=== PATIENT | male | born 1955 | race Caucasian/White ===

== ENCOUNTER 2019-12-24 03:04 | Outpatient (CLI) | payer OTHER, SELFPAY ==
[2019-12-24 20:04] LABS: SARS-CoV-2 RNA PCR Negative
== END 2019-12-24 03:05 | disposition home or self-care (01) ==
LOC: ANHCOVIDDT 03:05
PROVIDERS: PCP Family Medicine; Visit Provider Internal Medicine Gastroenterology
DX: Z01.812 Encounter for preprocedural laboratory examination (principal); Z20.828 Contact with and (suspected) exposure to other viral communicable diseases
CPT/HCPCS: 87635; C9803; U0003

== ENCOUNTER 2019-12-26 00:51 | Day surgery (SDC) | payer OTHER, SELFPAY ==
[2019-12-19 14:44] VITALS: BMI 28.8
[2019-12-26 07:14] VITALS: BP 114/75; PULSE 74; RESP 16; TEMP 36.1; O2SAT 100; BMI 29.0
[2019-12-26] MEDS: LACTATED RINGERS 1,000 ML 150 ML IV CONT (07:18)
[2019-12-26 07:25] LABS: Glucose Point of Care 79 (65-105)
--- NOTE | 2019-12-26 08:01 | P.CONGI_ITS ---
Assessment and Plan Assessment and plan (1) History of colon polyps: Code(s): Z86.010 - Personal history of colonic polyps Status: Acute Assessment and Plan: Patient has a history of colon polyps in the past. Most recent exam was 2013. Plan is for surveillance colonoscopy at this time. High-fiber diet advised. (2) Type 2 diabetes mellitus with hyperglycemia: Code(s): E11.65 - Type 2 diabetes mellitus with hyperglycemia Status: Acute (3) Paroxysmal atrial fibrillation: Code(s): I48.0 - Paroxysmal atrial fibrillation Status: Acute Assessment and Plan: Patient has a history of atrial fibrillation for which she is on Eliquis anticoagulation. This may contribute to anemia. Eliquis will be held briefly for colonoscopy. GI Consult Note Consult date/time: 12/26/19 08:01 HPI: Mauricio Singh is a 64 year old male seen in evaluation at the request of Dr Jerry Harvey. Patient presents for surveillance colonoscopy. Patient has a history of colon polyps in the past. Most recent colonoscopy 2013 was unremarkable. Patient states that his current weight appetite bowel movements are normal he does report straining at bowel movements somewhat. He states he was recently found to be mildly anemic. He denies any obvious blood in his s tools. Past history significant for atrial fibrillation for which she is on Eliquis anticoagulation. Family history is noncontributory. There is no reported history of colon or rectal disease. Review of Systems Review of Systems: All systems reviewed & are unremarkable except as noted in HPI and below PMFSH Social History Social History Smoking status: Never smoker Alcohol intake: never Spiritual care concerns: No Meds Home Medications and Allergies Home Medications Medication Instructions Recorded Confirmed Type dronedarone 400 mg tablet 400 mg PO Q12H 03/14/19 12/19/19 History albuterol sulfate 90 mcg/actuation 2 inhalation INHALATION Q4H PRN 03/15/19 11/21/19 Rx aerosol inhaler #6.7 gm blood sugar diagnostic #50 each 11/06/19 11/21/19 Rx flash glucose sensor #2 units 11/07/19 11/21/19 Rx insulin lispro 100 unit/mL See Rx Instructions SUB-Q .COMPLEX 11/07/19 11/21/19 Rx subcutaneous pen #3 ml metformin 1,000 mg tablet 500 mg PO BID #90 tablet 11/21/19 12/19/19 Rx apixaban [Eliquis] 5 mg PO BID 12/19/19 12/19/19 History testosterone 20.25 mg/1.25 gram 2 pump TOPICAL DAILY #75 gm 12/24/19 Rx (1.62 %) transdermal gel pump Allergies Allergy/AdvReac Type Severity Reaction Status Date / Time hydrocodone Allergy Unknown Nausea Verified 12/26/19 07:12 sumatriptan Allergy Unknown Nausea Verified 12/26/19 07:12 Vital Signs Vital Signs - 24 hr 12/26/19 07:14 Temperature 97.0 F L Pulse Rate 74 Respiratory Rate 16 Blood Pressure 114/75 Pulse Oximetry 100 Exam Narrative: Exam Narrative: Physical exam reveals patient to be alert. Vital signs stable. HEENT exam unremarkable. Lungs are clear to auscultation and percussion. Heart is without murmur or extra sounds. Abdominal exam bowel sounds are present soft nontender with no organomegaly. Digital external rectal exam is normal.
--- NOTE | 2019-12-26 08:04 | WPDANESEPPF ---
Anes - Initial Pre Proc Eval Procedure: Operation Date: 12/26/19 08:00 Proposed Procedures p Screening Colonoscopy - Manuel Kramer MD Date/Time: 12/26/19 08:04 Surgeon: Manuel Kramer MD Pre Op Diagnosis: Neoplasm Screening/ Hx Colon Polyps Patient Data Age: 64 Gender: M Height: 5 ft 10 in Weight: 91.7 kg Last Vital Signs Temp 97.0 F L 12/26/19 07:14 Pulse 74 12/26/19 07:14 Resp 16 12/26/19 07:14 BP 114/75 12/26/19 07:14 Pulse Ox 100 12/26/19 07:14 Allergies Allergy/AdvReac Type Severity Reaction Status Date / Time hydrocodone Allergy Unknown Nausea Verified 12/26/19 07:12 sumatriptan Allergy Unknown Nausea Verified 12/26/19 07:12 Home Medications Medication Instructions Recorded Confirmed Type dronedarone 400 mg tablet 400 mg PO Q12H 03/14/19 12/19/19 History albuterol sulfate 90 mcg/actuation 2 inhalation INHALATION Q4H PRN 03/15/19 11/21/19 Rx aerosol inhaler #6.7 gm blood sugar diagnostic #50 each 11/06/19 11/21/19 Rx flash glucose sensor #2 units 11/07/19 11/21/19 Rx insulin lispro 100 unit/mL See Rx Instructions SUB-Q .COMPLEX 11/07/19 11/21/19 Rx subcutaneous pen #3 ml metformin 1,000 mg tablet 500 mg PO BID #90 tablet 11/21/19 12/19/19 Rx apixaban [Eliquis] 5 mg PO BID 12/19/19 12/19/19 History testosterone 20.25 mg/1.25 gram 2 pump TOPICAL DAILY #75 gm 12/24/19 Rx (1.62 %) transdermal gel pump Laboratory Tests 12/26/19 07:22 POC Capillary Glucose 79 mg/dl mg/dl (65-105) Patient hx anesthesia problems: none Family hx anesthesia problems: none PMFSH Social History Social History Smoking status: Never smoker Alcohol intake: never Spiritual care concerns: No Anes - Eval Final PreProcedure Day of Procedure 12/26/19 08:04 Patient weight: overweight Heart: irregular rhythm Lungs: clear to auscultation Airway: Mallampati scale class II Neurological: alert and oriented Last oral intake: >/= 8 hours ASA classification: III Emergent: no Anesthetic plan: proceed Anesthesia type and monitoring: general GIVS and standard monitoring Informed Consent: The patient's anesthetic plan and its attendant risks and benefits were discussed with the patient/family/POA. Questions were solicited and answers provided to the satisfaction of the patient/family/POA.
[2019-12-26 08:32] VITALS: BP 111/70; PULSE 73; RESP 16; O2SAT 100
[2019-12-26 08:42] VITALS: BP 105/66; PULSE 70; RESP 16; O2SAT 100
[2019-12-26 08:52] VITALS: BP 123/81; PULSE 70; RESP 16; O2SAT 100
== END 2019-12-26 09:03 | disposition home or self-care (01) ==
PROVIDERS: PCP Family Medicine; Visit Provider Internal Medicine Gastroenterology
PROC: 0DJD8ZZ Inspection of Lower Intestinal Tract, Via Natural or Artificial Opening Endoscopic (ICD-10-PCS; CPT 45378; principal; 2019-12-26 08:00)
DX: Z12.11 Encounter for screening for malignant neoplasm of colon (principal); D12.4 Benign neoplasm of descending colon; D12.5 Benign neoplasm of sigmoid colon; K64.8 Other hemorrhoids; E11.65 Type 2 diabetes mellitus with hyperglycemia; I48.0 Paroxysmal atrial fibrillation; Z79.4 Long term (current) use of insulin; Z79.84 Long term (current) use of oral hypoglycemic drugs; Z79.01 Long term (current) use of anticoagulants
CPT/HCPCS: 45385; 87635; 88305; C9803; J2704; J7120; U0003

== ENCOUNTER → 2020-07-02 08:15 | Outpatient (CLI) | payer OTHER, SELFPAY ==
[2020-07-02 10:51] LABS: Influenza Control Positive
[2020-07-03 19:22] LABS: SARS-CoV-2 RNA PCR Negative
== END ==
PROVIDERS: PCP Family Medicine; Visit Provider Physician Assistant Medical
DX: Z20.822 Contact with and (suspected) exposure to COVID-19 (principal); R68.89 Other general symptoms and signs; B34.9 Viral infection, unspecified
CPT/HCPCS: 87804; C9803; U0003; U0005

== ENCOUNTER 2022-06-23 12:09 | Outpatient (CLI) | payer MEDICARE, SELFPAY ==
--- NOTE | ~2022-06-23 | CT_ITS ---
Non-contrast Head CT History: Headache Technique: Axial non-contrast imaging of the brain was performed. Dose reduction technique was used on this scan by utilizing automated exposure control and iterative reconstruction technique. The dose -length product (DLP) was 605.33 mGy-cm. Findings: There is no evidence of intracranial hemorrhage, mass lesion, or acute infarct. Brain par enchyma appears normal. The ventricles and subarachnoid spaces are normal in size. The calvarium ap pears normal. The visualized paranasal sinuses and mastoid air cells are clear. Impression: No significant abnormality seen. Reviewed, dictated and finalized at location . Impression: No significant abnormality seen.
== END 2022-06-23 12:10 | disposition home or self-care (01) ==
LOC: ANHIMG 12:15
PROVIDERS: PCP Family Medicine; Visit Provider Family Medicine
DX: S06.0XAA Concussion with loss of consciousness status unknown, initial encounter (principal); R51.9 Headache, unspecified; W19.XXXA Unspecified fall, initial encounter
CPT/HCPCS: 70450

== ENCOUNTER 2023-05-25 12:17 | Outpatient (CLI) | payer MEDICARE, SELFPAY ==
--- NOTE | ~2023-05-25 | XR_ITS ---
EXAMINATION: XR shoulder RT min 2V INDICATION: Right shoulder pain TECHNIQUE: Four views of the right shoulder are submitted. COMPARISON: None FINDINGS: Normal alignment. No fracture. There is mild osteoarthritis of the glenohumeral and acromio clavicular joints. Soft tissues are unremarkable. IMPRESSION: 1. Osteoarthritis without acute osseous abnormality. Reviewed, dictated and finalized at location L. RNAL GRINDER SET UP OPERATOR
== END 2023-05-25 12:18 ==
DX: M67.911 Unspecified disorder of synovium and tendon, right shoulder (principal); M19.011 Primary osteoarthritis, right shoulder
CPT/HCPCS: 73030

== ENCOUNTER 2025-02-04 10:13 | Outpatient (CLI) | payer MEDICARE, SELFPAY ==
--- NOTE | ~2025-02-04 | XR_ITS ---
EXAMINATION: XR shoulder RT min 2V, 02/04/2025 10:35 INSURANCE ANALYST HISTORY: M12.811 - Other specific arthropathies, not elsewhere cla... COMPARISON: No comparisons available. Findings: No acute fracture or malalignment. No significant degenerative changes. Soft tissues unremarkable. Impression: No acute fracture or malalignment. Reviewed, dictated and finalized at location P. RANCE ANALYST Impression: No acute fracture or malalignment.
--- OUTSIDE RECORDS SUMMARY | 2025-02-04 11:36 | XMS_ITS | Encounter Summary ---
Author Organization [facility] Health Address [address] [place] [address] Care Team Providers Care Clothing Manager Name Role Phone Jerry Harvey MD Primary Care Provider [phone] Encounter Details Date Type Department Care Team (Late st Contact Info) Description 04/28/2023 Telephone [facility] - Family Medicine [address] [place] [address] Earl Carreon MD [address] [facility] [address] [place] [address] Social History Tobacco Use Types Packs/Day Years Used Date Smoking Tobacco: Never Alcohol Use Standard Drinks/Week Comments No 0 (1 standard drink = 0.6 oz pur e alcohol) PHQ-2 Answer Date Recorded PHQ2 TOTAL SCORE 0 09/21/2022 Sex and Gender Information Value Date Recorded Sex Assigned at Male 08/20/2022 7:20 AM CDT Legal Sex Male 12:33 PM CDT Gender Identity Male 08/20/2022 7:20 AM CDT Sexual Orientation Straight 08/20/2022 7: 20 AM CDT documented as of this encounter Miscellaneous Notes * Telephone Encounter - Jeannie Pike - 04/28/2023 9:47 AM CST Patient called in requesting a Med refill. Drug type: rizatriptan (Maxalt) 10 MG tablet Patient does have an appt scheduled 05/03/23 Looks like request was sent over previously, Pharmacy: [facility] #[id number] [address] [facility] [place] [place] [address] Patient call back number: [phone] ND TRANSPORTATION OPERATOR documented in this encounter Plan of Treatment Not on file documented as of this encounter Visit Diagnoses Not on filedocumented in this encounter Care Teams Clothing Manager Relationship Specialty Start Date End Date Jerry Harvey MD [address] [place] [id number] PCP - General 06/30/22 documented as of this encounter
--- OUTSIDE RECORDS SUMMARY | 2025-02-04 11:36 | XMS_ITS | Encounter Summary ---
Author Organization [employer] Address 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 [phone] PCP - General Family Practice 06/18/19 documented as of this encounter
--- OUTSIDE RECORDS SUMMARY | 2025-02-04 11:37 | XMS_ITS | Encounter Summary ---
Author Organization [facility] Address 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 [address] PCP - General Family Practice 06/18/19 documented as of this encounter
--- OUTSIDE RECORDS SUMMARY | 2025-02-04 11:37 | XMS_ITS | Encounter Summary ---
Author Organization [facility] Address 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 [address] PCP - General Family Practice 06/18/19 documented as of this encounter
--- OUTSIDE RECORDS SUMMARY | 2025-02-04 11:37 | XMS_ITS | Encounter Summary ---
Author Organization [employer] Address [address] [place] [address] Care Team Providers Care Home Child Care Provider Name Role Phone Jerry Harvey MD Primary Care Provider [phone] Encounter Details Date Type Department Care Team (Late st Contact Info) Description 06/27/2019 Digital Self COVID-1 9 Monitoring [facility] ABSTRACTION Provider, Abstract NO ADDRESS ON FILE Social History Tobacco Use Types Packs/Day Years Used Date Smoking Tobacco: Never Assessed Sex and Gender Information Value Date Recorded Sex Assigned at Not on file Legal Sex Male 4:56 AM [place] AUDITOR Gender Identity Not on file Sexual Orientation Not on file documented as of this encounter Plan of Treatment Not on file documented as of this encounter Visit Diagnoses Not on filedocumented in this encounter Additional Health Concerns Infection Onset Date Last Indicated Resolved Time COVID-19 06/15/2019 06/15/2019 08/14/2019 1:16 AM CDT documented as of this encounter Care Teams Home Child Care Provider Relationship Specialty Start Date End Date Jerry Harvey MD [address] [place] [address] PCP - General Family Practice 06/18/19 documented as of this encounter
--- OUTSIDE RECORDS SUMMARY | 2025-02-04 11:37 | XMS_ITS | Encounter Summary ---
Author Organization [facility] Address [address] [facility] [address] [facility] [address] Care Team Providers Care Polymerization Supervisor Name Role Phone Jerry Harvey MD Primary Care Provider [phone] Reason for Visit * Reason Onset Date Comments MEDICATION REFILL 08/19/2022 Encounter Details Date Type Department Care Team (Late st Contact Info) Description 08/19/2022 Refill [facility] - Family Medicine [address] [place] [address] Earl Carreon MD [address] [facility] [address] [place] [address] MEDICATION REFILL Social History Tobacco Use Types Packs/Day Years Used Date Smoking Tobacco: Never Alcohol Use Standard Drinks/Week Comments No 0 (1 standard drink = 0.6 oz pur e alcohol) Sex and Gender Information Value Date Recorded Sex Assigned at Male 08/20/2022 7:20 AM CDT Legal Sex Male 12:33 PM CDT Gender Identity Male 08/20/2022 7:20 AM CDT Sexual Orientation Straight 08/20/2022 7: 20 AM CDT documented as of this encounter Miscellaneous Notes * Telephone Encounter - Renetta Kaur - 08/22/2022 2:19 PM CDT Refill Request Mauricio Francisco NICHOLAS: 08/04/22Feb due: 08/25/22Feb scheduled: 08/20/2022 LRF: 08/04/22 Qty Disp: 9 # of refills: 0 Allergies: No Known Allergies Pended Medication Order: Requested Prescriptions Pending Prescriptions Disp Refills ??? rizatriptan (Maxalt) 5 MG tablet 9 tablet 0 Sig: Take 1 tab by mouth once at first sign of migraine. May repeat one time after 2 hours if needed. No more than 6 tablets a week. documented in this encounter Plan of Treatment Not on file documented as of this encounter Visit Diagnoses Diagnosis Concussion without loss of consciousness, subsequent encounter documented in this encounter Care Teams Polymerization Supervisor Relationship Specialty Start Date End Date Jerry Harvey MD [address] [place] [address] PCP - General 06/30/22 documented as of this encounter
--- OUTSIDE RECORDS SUMMARY | 2025-02-04 11:37 | XMS_ITS | Encounter Summary ---
Author Organization [facility] Address 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 [address] PCP - General Family Practice 06/18/19 documented as of this encounter
--- OUTSIDE RECORDS SUMMARY | 2025-02-04 11:37 | XMS_ITS | Encounter Summary ---
Author Organization [facility] Address 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 [address] PCP - General Family Practice 06/18/19 documented as of this encounter
--- OUTSIDE RECORDS SUMMARY | 2025-02-04 11:37 | XMS_ITS | Encounter Summary ---
Author Organization [employer] Address [address] [place] [address] Care Team Providers Care Hardscape Foreman Name Role Phone Jerry Harvey MD Primary Care Provider [phone] Encounter Details Date Type Department Care Team (Late st Contact Info) Description 07/02/2019 Digital Self COVID-1 9 Monitoring [place] ABSTRACTION Provider, Abstract NO ADDRESS ON FILE Social History Tobacco Use Types Packs/Day Years Used Date Smoking Tobacco: Never Assessed Sex and Gender Information Value Date Recorded Sex Assigned at Not on file Legal Sex Male 4:56 AM CREDIT REVIEW OFFICER Gender Identity Not on file Sexual Orientation Not on file documented as of this encounter Plan of Treatment Not on file documented as of this encounter Visit Diagnoses Not on filedocumented in this encounter Additional Health Concerns Infection Onset Date Last Indicated Resolved Time COVID-19 06/15/2019 06/15/2019 08/14/2019 1:16 AM CDT documented as of this encounter Care Teams Hardscape Foreman Relationship Specialty Start Date End Date Jerry Harvey MD [address] [place] [address] PCP - General Family Practice 06/18/19 documented as of this encounter
--- OUTSIDE RECORDS SUMMARY | 2025-02-04 11:37 | XMS_ITS | Clinical Summary ---
Author Organization [facility] Address [facility] [place] [address] Care Team Providers Care Industrial Gas Servicer Supervisor Name Role Phone Jerry Harvey MD Primary Care Provider [phone] Allergies No known active allergies Medications metFORMIN 500 MG tablet Take 500 mg by mouth 2 (two) times daily with meals. Active meloxicam 7.5 MG tabletIndicatio ns:Arthritis of knee Take 1 tablet (7.5 mg total) by mouth 2 (two) times daily as needed for Pain. Do not take with other NSAIDS like ibuprofen 60 tablet 0 Active metFORMIN 250 mg TABS 250 mg, glyBURIDE 1.25 MG TABS 1.25 mg Take by mouth 2 (two) times daily. Active Multiple Vitamin (MULTIVITAMIN ADULT OR) daily. Active testosterone 1% gel testosterone 20.25 mg/1.25 gram (1.62 %) transdermal gel pump Active Social History Tobacco Use Types Packs/Day Years Used Date Smoking Tobacco: Never Smokeless Tobacco: Never Tobacco Cessation:Counseling Given: No Comments:non smoker Alcohol Use Standard Drinks/Week Comments Never 0 (1 standard drink = 0.6 oz pur e alcohol) AUDIT-C Answer Date Recorded Q1: How often do you have a drink containing alc ohol? Never 01/20/2020 Average Number of Drinks Not on file 020 Frequency of Binge Drinking Not on file 01/01 Sex and Gender Information Value Date Recorded Sex Assigned at Not on file Legal Sex Male 9:17 AM CDT Gender Identity Not on file Sexual Orientation Not on file Last Filed Vital Signs Vital Sign Reading Time Taken Comments Blood Pressure 138/85 06/10/2020 1:48 PM ACADEMY DIRECTOR Pulse 87 06/10/2020 1:48 PM ACADEMY DIRECTOR Temperature 36.3 C (97.4 F) 06/10/2020 1:48 PM ACADEMY DIRECTOR Respiratory Rate 18 04/20/2020 1:51 PM ACADEMY DIRECTOR Oxygen Saturation 97% 06/10/2020 1:48 PM ACADEMY DIRECTOR Inhaled Oxygen Concentration - - Weight 97.5 kg (215 lb) 06/10/2020 1:48 PM ACADEMY DIRECTOR Height 177.8 cm (5' 10) 06/10/2020 1:48 PM ACADEMY DIRECTOR Body Mass Index 30.85 06/10/2020 1:48 PM ACADEMY DIRECTOR Plan of Treatment Health Maintenance Due Date Last Done Comments Colorectal Cancer Screening Colonoscopy (10 Years) 1955 Hepatitis C 1974 DTaP, Tdap and Td Vaccines ( 1 - Tdap) 07/24/1975 Pneumococcal Vaccine: 50+ Ye ars (1 of 1 - PCV) 2006 Zoster Vaccines (1 of 2) 2006 COVID-19 Vaccine (1 - 2024-2 6 season) 2024 Influenza Adult (#1) 2025 RSV Immunization or 60+ Years (1 - 1-dose 75+ series) 07/24/2031 Hepatitis A Vaccines Aged Out No long er eligible based on patient's age to complete this topic Meningococcal B Vaccine Aged Out No l onger eligible based on patient's age to complete this topic Meningococcal Vaccine Aged Out No tucker paula eligible based on patient's age to complete this topic RSV Immunizations Under 20 Months Aged Out No longer eligible based on patient's age to complete this topic Insurance [facility] Care Teams Industrial Gas Servicer Supervisor Relationship Specialty Start Date End Date Jerry Harvey MD [address] [place], [place] [id number] PCP - General FAMILY PRACTICE 09/11/19
--- OUTSIDE RECORDS SUMMARY | 2025-02-04 11:37 | XMS_ITS | Encounter Summary ---
Author Organization [employer] Address 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 [address] PCP - General Family Practice 06/18/19 documented as of this encounter
--- OUTSIDE RECORDS SUMMARY | 2025-02-04 11:37 | XMS_ITS | Encounter Summary ---
Author Organization [employer] Address 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 [address] PCP - General Family Practice 06/18/19 documented as of this encounter
--- OUTSIDE RECORDS SUMMARY | 2025-02-04 11:37 | XMS_ITS | Encounter Summary ---
Author Organization [facility] Address [address] [facility] [place] [address] Care Team Providers Care Student Ministries Director Name Role Phone Jerry Harvey MD Primary Care Provider [phone] Reason for Visit * Reason Onset Date Comments MEDICATION REFILL 08/20/2022 Encounter Details Date Type Department Care Team (Late st Contact Info) Description 08/20/2022 Refill [facility] - Family Medicine [address] [place] [address] Earl Carreon MD [address] [facility] [address] [place] [address] MEDICATION REFILL Social History Tobacco [...] Telephone Encounter - Renetta Kaur - 08/22/2022 2:32 PM CDT Refill Request Mauricio Francisco NICHOLAS: 08/04/22Feb due: 08/25/22Feb scheduled: 08/24/2022 LRF: 08/04/22 Qty Disp: 9 # of [...] encounter documented in this encounter Care Teams Student Ministries Director Relationship Specialty Start Date End Date Jerry Harvey MD [address] [place] [address] PCP - General 06/30/22 documented as of this encounter
--- OUTSIDE RECORDS SUMMARY | 2025-02-04 11:37 | XMS_ITS | Clinical Summary ---
Author Organization [facility] [employer] Address [address] [place] [address] Care Team Providers Care Textiles And Clothing Teacher Name Role Phone Jerry Harvey MD Primary Care Provider [phone] Source Comments [facility] [employer],non-owned Affiliates and Associated Physician Practices is amultiple site organization consisting of ambulatory clinics and hospital sitesin [place], [place], [place] and [place]. This disclosure is being madepursuant to the Care Everywhere program and may not contain all information available regarding this patient. Last updated 17.[facility] [employer] Allergies No known active allergies Medications * Be aware that medications may not be up to date on this document. Alwaysverify current medications with the patient. metFORMIN (Glucophage) 1000 MG tablet 07/05/19 23 Active Mounjaro 12.5 MG/0.5ML injection Inject 12.5 (twelve and one-half) mg subcutaneously every 7 days Active rosuvastatin (Crestor) 5 MG tablet Take 1 (one) tablet by mouth once daily 08/07/19 24 Active rizatriptan (Maxalt) 10 MG tabletIndicatio ns:Other migraine with status migrainosus, intractable TAKE 1 TABLET BY MOUTH 1 TIME AT EARLY ONSET OF MIGRAINE. MAY REPEAT 1 TIME AFTER 2 HOURS NEEDED 18 tablet 07/04/19 25 Active rizatriptan (Maxalt) 10 MG tabletIndicatio ns:Other migraine with status migrainosus, intractable TAKE 1 TABLET BY MOUTH 1 TIME AT EARLY ONSET OF MIGRAINE. MAY REPEAT 1 TIME AFTER 2 HOURS NEEDED 18 tablet 12/12/19 25 Active Active Problems No known active problems Resolved Problems Problem Noted Date Diagnosed Date Resolved Date Intermittent palpitations 12/31/2015 08/24/2022 Fatigue 01/09/2015 08/24/2022 09/21/2023 Obesity with body mass index 30 or greater 01/09/2015 08/24/2022 09/21/2023 Shortness of breath 01/09/2015 08/24/2022 09/21/19 Snoring 01/09/2015 08/24/2022 09/21/2023 Paroxysmal atrial fibrillation 08/20/2014 08/24/2022 09/21/2023 Encounters Date Type Department Care Team Description 12/10/2024 Refill [facility] - Family Medicine [address] [place] [address] Earl Carreon MD Refill Request from Last 3 Months Immunizations Immunization Administration Dates Next Due FLU VACCINE TRI IIV3 SPLIT IM (FLUVIRIN) 015 TDAP, HISTORIC VACCINE 06/20/2018 Family History Medical History Relation Name Comments Macular Degeneration Father Macular Degeneration Paternal Uncle 1 Macular Degeneration Paternal Uncle 2 Macular Degeneration Paternal Uncle 3 Macular Degeneration Paternal Uncle 4 Macular Degeneration Paternal Uncle 5 Migraine Son Relation Name Status Comments Father Paternal Uncle 1 Paternal Uncle 2 Paternal Uncle 3 Paternal Uncle 4 Paternal Uncle 5 Son Alive Social History Tobacco Use Types Packs/Day Years Used Date Smoking Tobacco: Never Tobacco Cessation:Counseling Given: Not Answered Alcohol Use Standard Drinks/Week Comments No 0 (1 standard drink = 0.6 oz pur e alcohol) PHQ-2 Answer Date Recorded Patient Health Questionnaire-2 Score 0 09/21/2023 Sex and Gender Information Value Date Recorded Sex Assigned at Male 08/20/2022 7:20 AM CDT Legal Sex Male 12:33 PM CDT Gender Identity Male 08/20/2022 7:20 AM CDT Sexual Orientation Straight 08/20/2022 7: 20 AM CDT Last Filed Vital Signs Vital Sign Reading Time Taken Comments Blood Pressure 119/75 09/21/2023 1:57 PM CDT Pulse 73 09/21/2023 1:57 PM CDT Temperature 37 C (98.6 F) 09/21/2023 1:57 PM CDT Respiratory Rate 16 11/16/2022 3:04 PM CDT Oxygen Saturation 98% 09/21/2023 1:57 PM CDT Inhaled Oxygen Concentration - - Weight 90.4 kg (199 lb 6.4 oz) 09/21/2023 1:57 P M CDT Height 180.3 cm (5' 11) 02/15/2023 2:01 PM WATERSHED TENDER Body Mass Index 27.81 02/15/2023 2:01 PM WATERSHED TENDER Plan of Treatment Health Maintenance Due Date Last Done Comments COLOGUARD (AGES 45-75) - COL ON CA SCREENING 1956 COLON MONITORING 1956 COLONOSCOPY - COLON CA SCREENING 1956 CT COLONOGRAPHY - COLON CA SCREENING 1956 Colorectal Cancer Screening 1956 FIT - COLON CA SCREENING 1956 FLEX SIG - COLON CA SCREENING 1956 LIPID TESTING 1956 HEPATITIS C SCREENING 07/19/1974 PNEUMOCOCCAL VACCINE 50+ (1 of 1 - PCV) 2006 ZOSTER VACCINE (1 of 2) 2006 SCREENING FOR DIABETES 06/30/2022 07/26/2014 DEPRESSION SCREENING 04/03/2024 09/21/2023, 09/21/2022 MEDICARE AWV CALENDAR YEAR 2024 COVID-19 VACCINE (4 - 2024-2 6 season) 2024 03/22/2021, 07/06/2020, 06/14/2020 INFLUENZA VACCINE (#1) 2024 04/10/2014 DTAP/TDAP/TD VACCINES (2 - T d or Tdap) 06/20/2028 06/20/2018 Respiratory Syncytial Virus (RSV) Vaccine Pt: or over 60 yrs (1 - 1-dose 75+ series) 07/24/2031 HEPATITIS B VACCINE Aged Out No longe r eligible based on patient's age to complete this topic HIB VACCINE Aged Out No longer eligi ble based on patient's age to complete this topic HPV VACCINE Aged Out No longer eligi ble based on patient's age to complete this topic MENINGOCOCCAL (Group B) VACCINE SHARED DECISION-MAKING Aged Out No longer eligible based on patient's age to complete this topic MENINGOCOCCAL GROUPS A/C/Y/W VACCINE Aged Out No longer eligible b ased on patient's age to complete this topic Procedures Procedure Name Priority Date/Time Associated Diagnosis Comments COMPREHENSIVE METABOLIC PANEL STAT 07/26/2014 1:07 PM CDT from Last 3 Months or Most Recently Relevant to Health Maintenance Results * (ABNORMAL) COMPREHENSIVE METABOLIC PANEL (07/26/2014 1:07 PM CDT) Glucose 124 70 - 125 mg/dL 07/26/2014 1:45 PM CDT [facility] Sodium 144 136 - 145 mmol/L 07/26/2014 1:45 PM CDT [facility] Potassium 4.5 3.4 - 4.5 mmol/L 07/26/2014 1:45 PM CDT [facility] Chloride 110(H) 98 - 107 mmol/L 07/26/2014 1:45 PM CDT [facility] CO2 25 22 - 29 mmol/L 07/26/2014 1:45 PM CDT [facility] Calcium 9.62 8.4 - 10.2 mg/dL 07/26/2014 1:45 PM CDT [facility] Anion Gap 14 10 - 20 mmol/L 07/26/2014 1:45 PM CDT [facility] BUN 19.3 8.4 - 25.7 mg/dL 07/26/2014 1:45 PM CDT [facility] Creatinine 1.18 0.72 - 1.25 mg/dL 07/26/2014 1:45 PM CDT [facility] eGFR by MDRD >60 >60 mL/min/1.7 3m2 07/26/2014 1:45 PM CDT [facility] eGFR by MDRD >60 >60 mL/min/1.7 3m2 07/26/2014 1:45 PM CDT [facility] Alkaline Phosphatase 61 40 - 150 U/L 07/26/2014 1:45 PM CDT [facility] ALT 13 5 - 55 U/L 07/26/2014 1:45 PM CDT [facility] AST 13 5 - 34 U/L 07/26/2014 1:45 PM CDT [facility] Protein Total 6.5 6.4 - 8.3 gm/dL 07/26/2014 1:45 PM CDT [facility] Albumin 3.8 3.5 - 5.0 gm/dL 07/26/2014 1:45 PM CDT [facility] Globulin Total 2.7 2.6 - 4.0 gm/dL 07/26/2014 1:45 PM CDT [facility] Albumin/Globulin Ratio 1.4 0.9 - 1.6 07/26/2014 1:45 PM CDT [facility] Bilirubin Total 0.9 0.2 - 1.2 mg/dL 07/26/2014 1:45 PM CDT [facility] Blood BLOOD SPECIMEN / Unknown 07/26/2014 1:07 PM CDT 07/26/2014 1:18 PM CDT us Enio Dueñas MD LAB - CHEMISTRY ORDERABLES Ann Marie correa Result [facility] [address] [place] [address], [facility] from Last 3 Months or Most Recently Relevant to Health Maintenance Insurance [facility] MANAGED MEDICARE ADV [facility] MANAGED MEDICARE ADV Care Teams Textiles And Clothing Teacher Relationship Specialty Start Date End Date Jerry Harvey MD [address] [place] [id number] PCP - General 06/30/22
--- OUTSIDE RECORDS SUMMARY | 2025-02-04 11:37 | XMS_ITS | Clinical Summary ---
Author Organization [facility] Address [address] [place] [address] Care Team Providers Care Product Support Sales Representative Name Role Phone Jerry Harvey MD Primary Care Provider [phone] Allergies No known active allergies Medications metFORMIN (GLUCOPHAGE) 1,000 mg tablet Take 1,000 mg by mouth 2 times daily with meals. 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 Gender Identity Not on file Sexual Orientation Not on file Plan of Treatment Health Maintenance Due Date Last Done Comments DIABETES ANNUAL FOOT EXAM 1974 DIABETES ANNUAL RETINAL EXAM 1974 DIABETES HBA1C Q 6 MONTHS 1974 DIABETES MICROALBUMIN ANNUAL SCREEN 1974 LDL CHOLESTEROL ANNUAL 1974 PNEUMOCOCCAL VACCINE 50+ YEARS (1 of 2 - PCV) 07/23/18 76 COLORECTAL SCREENING 2001 Colorectal Cancer Screening 2001 FIT-DNA Q 3 years 2001 FIT/FOBT Q 1 year 2001 Flex Sig/CT Colonography Q 5 years 2001 ZOSTER VACCINE (1 of 2) 2006 INFLUENZA VACCINE (#1) 2024 04/10/2014 DTAP/TDAP/TD VACCINES (2 - Td or Tdap) 06/20/2028 RSV VACCINE (60+ or ) (1 - 1-dose 75+ series) 07/24/2031 Insurance [facility] OPTIONS PPO [id number] Care Teams Product Support Sales Representative Relationship Specialty Start Date End Date Jerry Harvey MD [address] [place] [phone] PCP - General Family Practice 06/18/19
--- OUTSIDE RECORDS SUMMARY | 2025-02-04 11:37 | XMS_ITS | Encounter Summary ---
Author Organization [employer] Address 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 [address] PCP - General Family Practice 06/18/19 documented as of this encounter
--- OUTSIDE RECORDS SUMMARY | 2025-02-04 11:37 | XMS_ITS | Encounter Summary ---
Author Organization [employer] Address [address] [place] [address] Care Team Providers Care Credit Operations Processor Name Role Phone Jerry Harvey MD Primary Care Provider [phone] Encounter Details Date Type Department Care Team (Late st Contact Info) Description 07/01/2019 Digital Self COVID-1 9 Monitoring STL ABSTRACTION Provider, Abstract NO ADDRESS ON FILE Social History Tobacco Use Types Packs/Day Years Used Date Smoking Tobacco: Never Assessed Sex and Gender Information Value Date Recorded Sex Assigned at Not on file Legal Sex Male 4:56 AM VALUE ANALYST Gender Identity Not on file Sexual Orientation Not on file documented as of this encounter Plan of Treatment Not on file documented as of this encounter Visit Diagnoses Not on filedocumented in this encounter Additional Health Concerns Infection Onset Date Last Indicated Resolved Time COVID-19 06/15/2019 06/15/2019 08/14/2019 1:16 AM CDT documented as of this encounter Care Teams Credit Operations Processor Relationship Specialty Start Date End Date Jerry Harvey MD [address] [place] [address] PCP - General Family Practice 06/18/19 documented as of this encounter
--- OUTSIDE RECORDS SUMMARY | 2025-02-04 11:37 | XMS_ITS | Encounter Summary ---
Author Organization [employer] Address [address] [place] [address] Care Team Providers Care Fisher Gill Net Name Role Phone Jerry Harvey MD Primary Care Provider [phone] Encounter Details Date Type Department Care Team (Late st Contact Info) Description 06/29/2019 Digital Self COVID-1 9 Monitoring STL ABSTRACTION Provider, Abstract NO ADDRESS ON FILE Social History Tobacco Use Types Packs/Day Years Used Date Smoking Tobacco: Never Assessed Sex and Gender Information Value Date Recorded Sex Assigned at Not on file Legal Sex Male 4:56 AM SAMPLE SEWER Gender Identity Not on file Sexual Orientation Not on file documented as of this encounter Plan of Treatment Not on file documented as of this encounter Visit Diagnoses Not on filedocumented in this encounter Additional Health Concerns Infection Onset Date Last Indicated Resolved Time COVID-19 06/15/2019 06/15/2019 08/14/2019 1:16 AM CDT documented as of this encounter Care Teams Fisher Gill Net Relationship Specialty Start Date End Date Jerry Harvey MD [address] [place] [address] PCP - General Family Practice 06/18/19 documented as of this encounter
--- OUTSIDE RECORDS SUMMARY | 2025-02-04 11:37 | XMS_ITS | Encounter Summary ---
Author Organization [employer] Address 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 [address] PCP - General Family Practice 06/18/19 documented as of this encounter
--- OUTSIDE RECORDS SUMMARY | 2025-02-04 11:37 | XMS_ITS | Encounter Summary ---
Author Organization [employer] Address 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 [address] PCP - General Family Practice 06/18/19 documented as of this encounter
--- OUTSIDE RECORDS SUMMARY | 2025-02-04 11:37 | XMS_ITS | Encounter Summary ---
Author Organization [employer] Address [address] [place] [address] Care Team Providers Care Activities Counselor Name Role Phone Jerry Harvey MD Primary Care Provider [phone] Encounter Details Date Type Department Care Team (Late st Contact Info) Description 06/25/2019 Digital Self COVID-1 9 Monitoring STL ABSTRACTION Provider, Abstract NO ADDRESS ON FILE Social History Tobacco Use Types Packs/Day Years Used Date Smoking Tobacco: Never Assessed Sex and Gender Information Value Date Recorded Sex Assigned at Not on file Legal Sex Male 4:56 AM CASE MANAGEMENT SPECIALIST Gender Identity Not on file Sexual Orientation Not on file documented as of this encounter Plan of Treatment Not on file documented as of this encounter Visit Diagnoses Not on filedocumented in this encounter Additional Health Concerns Infection Onset Date Last Indicated Resolved Time COVID-19 06/15/2019 06/15/2019 08/14/2019 1:16 AM CDT documented as of this encounter Care Teams Activities Counselor Relationship Specialty Start Date End Date Jerry Harvey MD [address] [place] [address] PCP - General Family Practice 06/18/19 documented as of this encounter
--- OUTSIDE RECORDS SUMMARY | 2025-02-04 11:37 | XMS_ITS | Encounter Summary ---
Author Organization [employer] Address 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 [address] PCP - General Family Practice 06/18/19 documented as of this encounter
== END 2025-02-04 10:14 | disposition home or self-care (01) ==
PROVIDERS: PCP Family Medicine; Visit Provider Nurse Practitioner Family
DX: M12.811 Other specific arthropathies, not elsewhere classified, right shoulder (principal)
CPT/HCPCS: 73030

== ENCOUNTER 2025-03-12 16:46 | Observation (INO) | payer MEDICARE, SELFPAY ==
[2025-02-17 15:55] VITALS: BMI 25.1
[2025-03-12] VITALS (25 sets, daily range): BP systolic 82–126; BP diastolic 55–83; PULSE 58–133; RESP 13–26; TEMP 36.7–36.8; O2SAT 96–100
--- OUTSIDE RECORDS SUMMARY | 2025-03-12 02:41 | XMS_ITS | Encounter Summary ---
Author Organization [facility] Address [address] [place] [address] Care Team Providers Care Cnc Programmer Name Role Phone Jerry Harvey MD Primary Care Provider [phone] Encounter Details Date Type Department Care Team (Late st Contact Info) Description 04/28/2023 Telephone [facility] - Family Medicine [address] [place] [address] Earl Carreon MD [address] [facility] [address] [place] [address] Social History Tobacco Use Types [...] like request was sent over previously, Pharmacy: [id number] [address] [place] [address] Patient call back number: [phone] NHOUSE STAFF documented in this encounter Plan of Treatment Not on file documented as of this encounter Visit Diagnoses Not on filedocumented in this encounter Care Teams Cnc Programmer Relationship Specialty Start Date End Date Jerry Harvey MD [address] [place] [phone] PCP - General 06/30/22 documented as of this encounter
--- OUTSIDE RECORDS SUMMARY | 2025-03-12 02:41 | XMS_ITS | Clinical Summary ---
Author Organization [facility] Address [address] [place] [address] Care Team Providers Care Watch Engine Operator Name Role Phone Jerry Harvey MD Primary Care Provider Source Comments [facility],non-owned Affiliates and Associated Physician Practices is amultiple site organization consisting of ambulatory clinics and hospital sitesin [place], [place], [place] and [place]. This disclosure is being madepursuant to the Care Everywhere program and may not contain all information available regarding this patient. Last updated 17.[facility] Allergies No known active allergies Medications * [...] 09/21/2023 Paroxysmal atrial fibrillation 08/20/2014 08/24/2022 09/21/2023 Immunizations Immunization Administration Dates Next Due FLU [...] 180.3 cm (5' 11) 02/15/2023 2:01 PM GENERAL SURGEON Body Mass Index 27.81 02/15/2023 2:01 PM GENERAL SURGEON Plan of Treatment Health Maintenance Due Date [...] 1:07 PM CDT 07/26/2014 1:18 PM CDT Enio Dueñas MD LAB - CHEMISTRY ORDERABLES Ann Marie madeline Result [facility] [place] [address], [facility] from Last 3 Months or Most Recently Relevant to Health Maintenance Insurance [facility] MANAGED MEDICARE ADV [facility] MANAGED MEDICARE ADV Care Teams Watch Engine Operator Relationship Specialty Start Date End Date Jerry Harvey MD [address] [place] [address] PCP - General 06/30/22
--- OUTSIDE RECORDS SUMMARY | 2025-03-12 02:42 | XMS_ITS | Encounter Summary ---
Author Organization [facility] Address [address] [address] Care Team Providers Care Tobacco Dipper Name Role Phone Jerry Harvey MD Primary Care Provider [phone] Reason for Visit * Reason Onset Date Comments MEDICATION REFILL 08/19/2022 Encounter Details Date Type Department Care Team (Late st Contact Info) Description 08/19/2022 Refill [facility] - Family Medicine [address] [place] [address] Earl Carreon MD [address] [facility] [address] [place] [address] MEDICATION REFILL Social History Tobacco [...] encounter documented in this encounter Care Teams Tobacco Dipper Relationship Specialty Start Date End Date Jerry Harvey MD [address] [place] [address] PCP - General 06/30/22 documented as of this encounter
--- OUTSIDE RECORDS SUMMARY | 2025-03-12 02:42 | XMS_ITS | Encounter Summary ---
Author Organization [employer] Address 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 [address] PCP - General Family Practice 06/18/19 documented as of this encounter
--- OUTSIDE RECORDS SUMMARY | 2025-03-12 02:42 | XMS_ITS | Encounter Summary ---
Author Organization [employer] Address 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 [address] PCP - General Family Practice 06/18/19 documented as of this encounter
--- OUTSIDE RECORDS SUMMARY | 2025-03-12 02:42 | XMS_ITS | Encounter Summary ---
Author Organization [employer] Address 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 [address] PCP - General Family Practice 06/18/19 documented as of this encounter
--- OUTSIDE RECORDS SUMMARY | 2025-03-12 02:42 | XMS_ITS | Encounter Summary ---
Author Organization [employer] Address 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 [address] PCP - General Family Practice 06/18/19 documented as of this encounter
--- OUTSIDE RECORDS SUMMARY | 2025-03-12 02:42 | XMS_ITS | Encounter Summary ---
Author Organization [employer] Address 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 [address] PCP - General Family Practice 06/18/19 documented as of this encounter
--- OUTSIDE RECORDS SUMMARY | 2025-03-12 02:42 | XMS_ITS | Encounter Summary ---
Author Organization [employer] Address 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 [address] PCP - General Family Practice 06/18/19 documented as of this encounter
--- OUTSIDE RECORDS SUMMARY | 2025-03-12 02:42 | XMS_ITS | Encounter Summary ---
Author Organization [employer] Address [address] [place] [address] Care Team Providers Care Remedial Teacher Name Role Phone Jerry Harvey MD Primary Care Provider [phone] Encounter Details Date Type Department Care Team (Late st Contact Info) Description 07/02/2019 Digital Self COVID-1 9 Monitoring STL ABSTRACTION Provider, Abstract NO ADDRESS ON FILE Social History Tobacco Use Types Packs/Day Years Used Date Smoking Tobacco: Never Assessed Sex and Gender Information Value Date Recorded Sex Assigned at Not on file Legal Sex Male 4:56 AM SHARED SERVICES REPRESENTATIVE Gender Identity Not on file Sexual Orientation Not on file documented as of this encounter Plan of Treatment Not on file documented as of this encounter Visit Diagnoses Not on filedocumented in this encounter Additional Health Concerns Infection Onset Date Last Indicated Resolved Time COVID-19 06/15/2019 06/15/2019 08/14/2019 1:16 AM CDT documented as of this encounter Care Teams Remedial Teacher Relationship Specialty Start Date End Date Jerry Harvey MD [address] [place] [address] PCP - General Family Practice 06/18/19 documented as of this encounter
--- OUTSIDE RECORDS SUMMARY | 2025-03-12 02:42 | XMS_ITS | Encounter Summary ---
Author Organization [employer] Address [address] [place] [address] Care Team Providers Care Family Medicine Physician Name Role Phone Jerry Harvey MD Primary Care Provider [phone] Encounter Details Date Type Department Care Team (Late st Contact Info) Description 07/01/2019 Digital Self COVID-1 9 Monitoring STL ABSTRACTION Provider, Abstract NO ADDRESS ON FILE Social History Tobacco Use Types Packs/Day Years Used Date Smoking Tobacco: Never Assessed Sex and Gender Information Value Date Recorded Sex Assigned at Not on file Legal Sex Male 4:56 AM NEGATIVE RESTORER Gender Identity Not on file Sexual Orientation Not on file documented as of this encounter Plan of Treatment Not on file documented as of this encounter Visit Diagnoses Not on filedocumented in this encounter Additional Health Concerns Infection Onset Date Last Indicated Resolved Time COVID-19 06/15/2019 06/15/2019 08/14/2019 1:16 AM CDT documented as of this encounter Care Teams Family Medicine Physician Relationship Specialty Start Date End Date Jerry Harvey MD [address] [place] [address] PCP - General Family Practice 06/18/19 documented as of this encounter
--- OUTSIDE RECORDS SUMMARY | 2025-03-12 02:42 | XMS_ITS | Encounter Summary ---
Author Organization [employer] Address 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 [address] PCP - General Family Practice 06/18/19 documented as of this encounter
--- OUTSIDE RECORDS SUMMARY | 2025-03-12 02:42 | XMS_ITS | Clinical Summary ---
Author Organization [facility] Address [address] [place] [address] Care Team Providers Care Ingot Weigher Name Role Phone Jerry Harvey MD Primary Care Provider [phone] Allergies No known active allergies Medications metFORMIN (GLUCOPHAGE) 1,000 mg tablet Take 1,000 mg by mouth 2 times daily with meals. Active Social History Tobacco Use Types Packs/Day Years Used Date Smoking Tobacco: Never Assessed Sex and Gender Information Value Date Recorded Sex Assigned at Not on file Legal Sex Male 4:56 AM INSIDE OUTSIDE SALES REPRESENTATIVE Gender Identity Not on file Sexual [...] (1 - 1-dose 75+ series) 07/24/[address] [facility] OPT[employer] PPO [id number] Care Teams Ingot Weigher Relationship Specialty Start Date End Date Jerry Harvey MD [address] [place] [id number] PCP - General Family Practice 06/18/19
--- OUTSIDE RECORDS SUMMARY | 2025-03-12 02:42 | XMS_ITS | Encounter Summary ---
Author Organization [employer] Address [address] [place] [address] Care Team Providers Care Sales Branch Manager Name Role Phone Jerry Harvey MD Primary Care Provider [phone] Encounter Details Date Type Department Care Team (Late st Contact Info) Description 06/25/2019 Digital Self COVID-1 9 Monitoring ST[place] ABSTRACTION Provider, Abstract NO ADDRESS ON FILE Social History Tobacco Use Types Packs/Day Years Used Date Smoking Tobacco: Never Assessed Sex and Gender Information Value Date Recorded Sex Assigned at Not on file Legal Sex Male 4:56 AM RECYCLABLE PRODUCTS SORTER Gender Identity Not on file Sexual Orientation Not on file documented as of this encounter Plan of Treatment Not on file documented as of this encounter Visit Diagnoses Not on filedocumented in this encounter Additional Health Concerns Infection Onset Date Last Indicated Resolved Time COVID-19 06/15/2019 06/15/2019 08/14/2019 1:16 AM CDT documented as of this encounter Care Teams Sales Branch Manager Relationship Specialty Start Date End Date Jerry Harvey MD [address] [place] [address] PCP - General Family Practice 06/18/19 documented as of this encounter
--- OUTSIDE RECORDS SUMMARY | 2025-03-12 02:42 | XMS_ITS | Encounter Summary ---
Author Organization [employer] Address 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 [address] PCP - General Family Practice 06/18/19 documented as of this encounter
--- OUTSIDE RECORDS SUMMARY | 2025-03-12 02:42 | XMS_ITS | Encounter Summary ---
Author Organization [employer] Address 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 [address] PCP - General Family Practice 06/18/19 documented as of this encounter
--- OUTSIDE RECORDS SUMMARY | 2025-03-12 02:42 | XMS_ITS | Encounter Summary ---
Author Organization [employer] Address 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 [address] PCP - General Family Practice 06/18/19 documented as of this encounter
--- OUTSIDE RECORDS SUMMARY | 2025-03-12 02:42 | XMS_ITS | Clinical Summary ---
Author Organization [facility] Address [facility] [place] [address] Care Team Providers Care Math Professor Name Role Phone Jerry Harvey MD Primary Care Provider [phone] Allergies No known active allergies Medications metFORMIN [...] Comments Blood Pressure 138/85 06/10/2020 1:48 PM NATIONAL FLATBED TRUCK DRIVER Pulse 87 06/10/2020 1:48 PM NATIONAL FLATBED TRUCK DRIVER Temperature 36.3 C (97.4 F) 06/10/2020 1:48 PM NATIONAL FLATBED TRUCK DRIVER Respiratory Rate 18 04/20/2020 1:51 PM NATIONAL FLATBED TRUCK DRIVER Oxygen Saturation 97% 06/10/2020 1:48 PM NATIONAL FLATBED TRUCK DRIVER Inhaled Oxygen Concentration - - Weight 97.5 kg (215 lb) 06/10/2020 1:48 PM NATIONAL FLATBED TRUCK DRIVER Height 177.8 cm (5' 10) 06/10/2020 1:48 PM NATIONAL FLATBED TRUCK DRIVER Body Mass Index 30.85 06/10/2020 1:48 PM NATIONAL FLATBED TRUCK DRIVER Plan of Treatment Health Maintenance Due Date [...] patient's age to complete this topic Insurance [facility] Care Teams Math Professor Relationship Specialty Start Date End Date Jerry Harvey MD [address] [place], [place] [id number] PCP - General FAMILY PRACTICE 09/11/19
--- OUTSIDE RECORDS SUMMARY | 2025-03-12 02:42 | XMS_ITS | Encounter Summary ---
Author Organization [facility] Address [address] [place] [address] Care Team Providers Care Customer Support Executive Name Role Phone Jerry Harvey MD Primary Care Provider [phone] Reason for Visit * Reason Onset Date Comments MEDICATION REFILL 08/20/2022 Encounter Details Date Type Department Care Team (Late st Contact Info) Description 08/20/2022 Refill [facility] - Family Medicine [address] [place] [address] Earl Carreon MD [address] [facility] [address] [place] [address] MEDICATION REFILL Social History Tobacco [...] encounter documented in this encounter Care Teams Customer Support Executive Relationship Specialty Start Date End Date Jerry Harvey MD [address] [place] [address] PCP - General 06/30/22 documented as of this encounter
--- OUTSIDE RECORDS SUMMARY | 2025-03-12 02:42 | XMS_ITS | Encounter Summary ---
Author Organization [employer] Address 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 [address] PCP - General Family Practice 06/18/19 documented as of this encounter
--- OUTSIDE RECORDS SUMMARY | 2025-03-12 02:42 | XMS_ITS | Encounter Summary ---
Author Organization [employer] Address 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 [address] PCP - General Family Practice 06/18/19 documented as of this encounter
--- NOTE | 2025-03-12 09:34 | WPDANESEPPF ---
Anes - Initial Pre Proc Eval Procedure: Operation Date: 03/12/25 10:30 Proposed Procedures p Screening Colonoscopy - Nahid Lackey MD Date/Time: 03/12/25 09:34 Surgeon: Nahid Lackey MD Pre Op Diagnosis: Personal history of colon polyps, unspecified Patient Data Age: 69 Gender: M Height: 1.78 m Weight: 82.7 kg Last Vital Signs Temp 36.7 C 03/12/25 09:26 Pulse 87 03/12/25 09:26 Resp 16 03/12/25 09:26 BP 114/69 03/12/25 09:26 Pulse Ox 100 03/12/25 09:26 O2 Del Method Room Air 03/12/25 09:26 Allergies Allergy/AdvReac Type Severity Reaction Status Date / Time hydrocodone Allergy Unknown Nausea Verified 03/12/25 09:24 sumatriptan Allergy Unknown Nausea Verified 03/12/25 09:24 Home Medications ?Medication ?Instructions ?Recorded ?Confirmed ?Type blood sugar diagnostic #50 ea 06/28/22 02/21/25 Rx tirzepatide 12.5 mg/0.5 mL 12.5 mg subcut WEEKLY 12/21/23 03/12/25 History subcutaneous pen injector (Mounjaro) rizatriptan 10 mg tablet 10 mg PO ONCE PRN migraine 01/06/25 02/21/25 Rx headache #30 tabs terbinafine HCl 250 mg tablet 250 mg PO DAILY #30 tabs 01/06/25 03/12/25 Rx Patient hx anesthesia problems: none Family hx anesthesia problems: none Results Review: All pre-operative results and documents have been reviewed as part of the pre-operative evaluation. 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 Informed Consent: The patient's anesthetic plan and its attendant risks and benefits were discussed with the patient/family/POA. Questions were solicited and answers provided to the satisfaction of the patient/family/POA.
[2025-03-12] MEDS: LACTATED RINGERS 1,000 ML 150 ML IV CONT (09:37)
--- NOTE | 2025-03-12 10:22 | PM.IMHP2 ---
H&P: HPI History of Present Illness Date/Time: 03/12/25 10:22 Chief Complaint: History of colon polyps Narrative: The patient has a history of colonic polyps, the last colonoscopy was approximately 5 years ago. Review of Systems Review of Systems: All systems reviewed & are unremarkable except as noted in HPI and below PMFSH Past Medical History Medical History Osteoarthritis of left knee Tear of medial meniscus of left knee, current Changing skin lesion Chronic headache Chronic Berkley Bartholomew virus (EBV) infection Melancholy Colon polyps Apnea Low testosterone in male Migraine, unspecified, not intractable, without status migrainosus Mixed hyperlipidemia Paroxysmal atrial fibrillation Spondylosis without myelopathy or radiculopathy, cervical region Type 2 diabetes mellitus with hyperglycemia Family History Family History Father Patient's father is in good health Mother Family history of malignant melanoma Sibling No problems noted. 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 Gender identity (if verbalized by the patient): Male Spiritual care concerns: No Meds Home Medications and Allergies Home Medications ?Medication ?Instructions ?Recorded ?Confirmed ?Type blood sugar diagnostic #50 ea 06/28/22 02/21/25 Rx tirzepatide 12.5 mg/0.5 mL 12.5 mg subcut WEEKLY 12/21/23 03/12/25 History subcutaneous pen injector (Doug) rizatriptan 10 mg tablet 10 mg PO ONCE PRN migraine 01/06/25 02/21/25 Rx headache #30 tabs terbinafine HCl 250 mg tablet 250 mg PO DAILY #30 tabs 01/06/25 03/12/25 Rx Allergies Allergy/AdvReac Type Severity Reaction Status Date / Time hydrocodone Allergy Unknown Nausea Verified 03/12/25 09:24 sumatriptan Allergy Unknown Nausea Verified 03/12/25 09:24 Vital Signs Vital Signs - 24 hr 03/12/25 09:26 Temperature 98.1 F Pulse Rate 87 Respiratory Rate 16 Blood Pressure 114/69 Pulse Oximetry 100 Oxygen Delivery Room Air Exam Const: General: cooperative and healthy appearing Resp: Effort & Inspection: normal respiratory effort and able to speak in complete sentences Auscultation: clear to auscultation bilaterally Cardio: Rate: regular rate Rhythm: regular rhythm GI: Inspection: normal to inspection GI Palp: No No hepatosplenomegaly present Auscultation: normal bowel sounds Rectal Exam: deferred Skin: General skin exam: normal color Psych: Appearance: grossly normal Mental Status: mental status grossly normal Assessment and Plan Assessment and plan (1) History of colon polyps: Code(s): Z86.010 - Personal history of colon polyps Status: Acute Plan The patient is deemed a good candidate for the procedure. Consent signed. Will proceed. Prior Studies I have reviewed the following patient records and this information was taken into consideration when formulating the assessment and plan.: previous labs, previous ER visits, previous hospitalizations and previous clinic visits
--- NOTE | 2025-03-12 10:57 | SUR.OPER ---
Unable to reach cecum with multiple attempts. Per Dr. Lackey, started withdraw at hepatic flexure.
--- NOTE | 2025-03-12 11:03 | SUR.OPER ---
Notified Dr. Lackey, unable to retrieve sigmoid colon polyp.
--- NOTE | 2025-03-12 11:26 | ECG_ITS ---
Test Date: 2025-03-12 11:28:34 Measurements Intervals Couch Rate: 135 P: 0 VA: 0 QRS: 29 QRSD: 94 T: -16 QT: 296 QTc: 445 Interpretive Statements ATRIAL FIBRILLATION WITH RAPID VENTRICULAR RESPONSE CONSIDER INFERIOR INFARCT, AGE INDETERMINATE BASELINE ARTIFACT- I, II, AVR, AVL, AVF ABNORMAL ECG No previous ECG available for comparison Electronically Signed On 03-12-2025 11:31:43 [employer] by Orestes Tavarez D.O.
[2025-03-12] MEDS: METOPROLOL TARTRATE INJ 5 MG/5 ML VIAL IV PUSH ×3 (11:34→12:10)
--- NOTE | 2025-03-12 12:44 | SUR.PHASEII ---
58[address] Dr Rm spoke with Dr Hinton from cardiology.
--- NOTE | 2025-03-12 13:54 | SUR.PHASEII ---
Addendum entered by Trish Jacques RN 03/12/25 14:39: 1113-Pt in recovery. SECTION WEAVER states that during colonoscopy, pts HR was normal, then went up to the 150s and stayed there for the remainder of the colonoscopy. In recovery, HR 115-130s, initially. Will continue to monitor. 1122-Dr. Rm notified. Original Note: 1125- Pt states has some mild cramping, but nothing bad. 1128- Dr. Rm ordered EKG. EKG complete. 1134- Orders received from Dr. mR. 5mg Metoprolol IVP given. HR 133. 1152- 5mg Metoprolol IVP given. HR 120. 1210- 5mg Metoprolol IVP given. HR 127. 1224- Orders received from Dr. Rm. 10mg Diltiazem IVP given. HR 127. 1300- 15mg Diltiazem IVP given. HR 58. 1310- Sophia Ventimiglia, with cardiology, at bedside. Orders received for labs and to admit patient overnight for observation. 1330- Labs sent. 1340- BS done. 125 Pain level 0 1400- Solomon, hospitalist called. Report given.
[2025-03-12 14:01] LABS: Anion Gap 6 mmol/L (4-12); Blood Urea Nitrogen 16 mg/dL (9-20); Calcium 8.8 mg/dL (8.4-10.2); Carbon Dioxide 27 mmol/L (22-30); Chloride 102 mmol/L (98-107); Estimated CRCL calculation 79 ml/min; Estimated Glomerular Filt Rate > 60; Glucose 128 mg/dL (65-110); Potassium 4.3 mmol/L (3.4-5.0); Sodium 135 mmol/L (137-145)
[2025-03-12 14:18] LABS: Magnesium 2.4 mg/dL (1.6-2.3)
--- NOTE | 2025-03-12 14:30 | P.CONCA_ITS ---
Assessment and Plan Assessment and plan (1) Paroxysmal atrial fibrillation: Code(s): I48.0 - Paroxysmal atrial fibrillation Status: Acute Assessment and Plan: * patient went into afib with RVR s/p colonoscopy * has history of atrial fibrillation with ablation in the past * he has been in NSR and on no rate lowering agents or anticoagulation * His electrolytes are stable at this time * will keep K> 4 and Mag >2 * appears to be going in and out of afib on monitor at this time * will admit for overnight observation * will add PRN IV lopressor 5mg for sustained HR >130 * will add Toprol XL 25 mg daily as BP tolerates * check TSH * will begin lovenox 1mg/kg for AC * if he does not self convert overnight can plan CV (2) Controlled type 2 diabetes mellitus without complication, with long-term current use of insulin: Code(s): E11.9 - Type 2 diabetes mellitus without complications; Z79.4 - public health program manager (current) use of insulin Status: Acute Assessment and Plan: * managed with lifestyle modification * glycemic control per primary team (3) Colon polyps: Qualifiers: Colon polyp type: unspecified Colon location: unspecified part of colon Qualified Code(s): K63.5 - Polyp of colon Code(s): K63.5 - Polyp of colon Status: Acute Assessment and Plan: * His colonoscopy normal other than one noted polyp (4) Mixed hyperlipidemia: Code(s): E78.2 - Mixed hyperlipidemia Status: Acute Assessment and Plan: * lifestyle management History of Present Illness History of Present Illness Consult date/time: 03/12/25 14:30 Reason For Visit: Personal history of colon polyps, unspecified Narrative: Mauricio Singh is a 69 y.o. male with a PMH of atrial fibrillation who has remained in NSR for several years post ablation. He presented to [facility] today for routine screening colonoscopy. Post procedure patient went into atrial fibrillation with RVR. He states he did note some palpitations when waking up for anesthesia. No reports of any chest pain or pressure. No shortness of breath. No dizziness. He did report yesterday with his colon prep that he experienced some nausea and vomiting. He was given IV lopressor 5 mg x 3 and cardizem 10 mg IV x 1 in recovery. We were asked to see for further evaluation and management. 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 Gender identity (if verbalized by the patient): Male Spiritual care concerns: No Meds Home Medications and Allergies Home Medications ?Medication ?Instructions ?Recorded ?Confirmed ?Type blood sugar diagnostic #50 ea 06/28/22 02/21/25 Rx tirzepatide 12.5 mg/0.5 mL 12.5 mg subcut WEEKLY 12/2003/12/25 History subcutaneous pen injector (Doug) rizatriptan 10 mg tablet 10 mg PO ONCE PRN migraine 1 02/21/25 Rx headache #30 tabs terbinafine HCl 250 mg tablet 250 mg PO DAILY #30 tabs 01/06/25 03/12/25 Rx Allergies Allergy/AdvReac Type Severity Reaction Status Date / Time hydrocodone AdvReac Unknown Nausea Verified 03/12/25 12:08 sumatriptan AdvReac Unknown Nausea Verified 03/12/25 12:08 Vital Signs Vital Signs - 24 hr 03/12/25 09:26 03/12/25 11:13 03/12/25 11:24 Temperature 36.7 C Pulse Rate 87 131 H 133 H Respiratory Rate 16 19 15 Blood Pressure 114/69 112/72 126/83 Pulse Oximetry 100 99 100 Oxygen Delivery Room Air Room Air Room Air 03/12/25 11:34 03/12/25 11:34 03/12/25 11:44 Temperature Pulse Rate 133 H 133 H 118 H Respiratory Rate 14 15 Blood Pressure 124/82 111/79 Pulse Oximetry 99 100 Oxygen Delivery Room Air Room Air 03/12/25 11:52 03/12/25 11:54 03/12/25 12:04 Temperature Pulse Rate 120 H 115 H 125 H Respiratory Rate 17 17 Blood Pressure 110/73 111/81 Pulse Oximetry 100 100 Oxygen Delivery Room Air Room Air 03/12/25 12:10 03/12/25 12:24 03/12/25 12:34 Temperature Pulse Rate 131 H 127 H 92 Respiratory Rate 18 18 Blood Pressure 101/74 101/65 Pulse Oximetry 100 99 Oxygen Delivery Room Air Room Air 03/12/25 12:50 03/12/25 13:00 03/12/25 13:20 Temperature Pulse Rate 86 58 L 76 Respiratory Rate 17 21 H 21 H Blood Pressure 104/64 82/55 L 94/59 L Pulse Oximetry 100 99 99 Oxygen Delivery Room Air Room Air Room Air 03/12/25 13:40 03/12/25 14:10 Temperature Pulse Rate 79 94 Respiratory Rate 25 H 16 Blood Pressure 96/59 L 102/65 Pulse Oximetry 96 99 Oxygen Delivery Room Air Room Air Exam 2 Const: General: comfortable and no acute distress Neck: Neck: supple and No no JVD Resp: Effort & Inspection: normal respiratory effort Auscultation: clear to auscultation bilaterally Cardio: Rate: regular rate Rhythm: abnormal rhythm Heart sounds: no gallops, no murmurs and no rubs Neuro: Speech: normal speech Extrem: General: normal to inspection and no edema Psych: Mental Status: mental status grossly normal Results Labs and Meds 03/12/25 13:23 Lab results: Comprehensive Metabolic Panel 03/12/25 Range/Units 13:23 Sodium 135 L (137-145) mmol/L Potassium 4.3 (3.4-5.0) mmol/L Chloride 102 (98-107) mmol/L Carbon Dioxide 27 (22-30) mmol/L BUN 16 (9-20) mg/dL Creatinine 0.80 (0.7-1.3) mg/dL Glucose 128 H (65-110) mg/dL Calcium 8.8 (8.4-10.2) mg/dL Intake and Output 03/11/25 03/12/25 03/12/25 23:59 07:59 15:59 Intake Total 100 Balance 100 Intake: IV 100 Lactated Ringers 1,000 ml @ 150 100 mls/hr IV CONT .[id number] [facility] Rx# :[id number] Patient Weight 03/12/25 23:59 Weight 82.7 kg Imaging and Cardiology EKG results: image reviewed EKG Interpretation EKG shows: atrial fibrillation (rate of 135 bpm )
[2025-03-12] MEDS: RIZATRIPTAN BENZOATE 10 MG ODT PO (17:11)
--- NOTE | 2025-03-12 17:17 | ADMGEN ---
This patient, Mauricio Singh, was admitted to Medical Room 347-. Patient/family oriented to hospital policies and general routines including ID bracelet, bed and alarms, visiting hours, pain management, procedures, bathroom and other care routines, personal items, smoking policy, room service/diet, and visiting hours. Information on how to activate the Rapid Response Team has been discussed. Patient/Family are encouraged to report perceived risks to care and to ask questions if they do not understand what they are told or what they should do.
--- NOTE | 2025-03-12 18:13 | PM.IMHP2 ---
H&P: HPI History of Present Illness Date/Time: 03/12/25 18:13 Chief Complaint: AFib RVR Narrative: 69-year-old male with a past medical history of migraines, hyperlipidemia, diabetes, AFib s/p ablation presents to the endoscopy lab on 03/12/2025 for a prescheduled surveillance colonoscopy. Patient went into AFib with RVR at the end of the procedure. Patient has a history of AFib and had an ablation about 10 years ago. He has not had a recurrence until now. Not taking any rate lowering medication or anticoagulation. While in AFib, the patient states he felt a ?fluttering? in his chest. No chest pain or shortness of breath. Patient was given 5 mg IVP metoprolol x3, 10 mg IVP diltiazem and 15 mg IVP diltiazem before his rate decreased to the 80s and 90s from the 120s and 30s. Remained in AFib. Patient states he did have a difficult time with the colonoscopy prep with several episodes of vomiting. Labs largely unremarkable. Glucose slightly elevated at 128. Potassium 4.3 and magnesium 2.4. 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 Gender identity (if verbalized by the patient): Male Spiritual care concerns: No Meds Home Medications and Allergies Home Medications ?Medication ?Instructions ?Recorded ?Confirmed ?Type blood sugar diagnostic #50 ea 06/28/22 03/12/25 Rx tirzepatide 12.5 mg/0.5 mL 12.5 mg subcut WEEKLY 12/21/23 03/12/25 History subcutaneous pen injector (Doug) rizatriptan 10 mg tablet 10 mg PO ONCE PRN migraine 01/06/25 02/21/25 Rx headache #30 tabs terbinafine HCl 250 mg tablet 250 mg PO DAILY #30 tabs 01/06/25 03/12/25 Rx Allergies Allergy/AdvReac Type Severity Reaction Status Date / Time hydrocodone AdvReac Unknown Nausea Verified 03/12/25 17:20 Vital Signs Vital Signs - 24 hr 03/12/25 09:26 03/12/25 11:13 03/12/25 11:24 Temperature 98.1 F Pulse Rate 87 131 H 133 H Respiratory Rate 16 19 15 Blood Pressure 114/69 112/72 126/83 Pulse Oximetry 100 99 100 Oxygen Delivery Room Air Room Air Room Air 03/12/25 11:34 03/12/25 11:34 03/12/25 11:44 Temperature Pulse Rate 133 H 133 H 118 H Respiratory Rate 14 15 Blood Pressure 124/82 111/79 Pulse Oximetry 99 100 Oxygen Delivery Room Air Room Air 03/12/25 11:52 03/12/25 11:54 03/12/25 12:04 Temperature Pulse Rate 120 H 115 H 125 H Respiratory Rate 17 17 Blood Pressure 110/73 111/81 Pulse Oximetry 100 100 Oxygen Delivery Room Air Room Air 03/12/25 12:10 03/12/25 12:24 03/12/25 12:34 Temperature Pulse Rate 131 H 127 H 92 Respiratory Rate 18 18 Blood Pressure 101/74 101/65 Pulse Oximetry 100 99 Oxygen Delivery Room Air Room Air 03/12/25 12:50 03/12/25 13:00 03/12/25 13:20 Temperature Pulse Rate 86 58 L 76 Respiratory Rate 17 21 H 21 H Blood Pressure 104/64 82/55 L 94/59 L Pulse Oximetry 100 99 99 Oxygen Delivery Room Air Room Air Room Air 03/12/25 13:40 03/12/25 13:50 03/12/25 14:10 Temperature Pulse Rate 79 81 94 Respiratory Rate 25 H 23 H 16 Blood Pressure 96/59 L 104/61 102/65 Pulse Oximetry 96 100 99 Oxygen Delivery Room Air Room Air Room Air 03/12/25 14:30 03/12/25 14:50 03/12/25 15:10 Temperature Pulse Rate 98 86 98 Respiratory Rate 26 H 17 13 Blood Pressure 105/57 L 106/59 L 95/66 L Pulse Oximetry 99 98 99 Oxygen Delivery Room Air Room Air Room Air 03/12/25 15:30 03/12/25 15:50 03/12/25 17:13 Temperature Pulse Rate 92 99 Respiratory Rate 20 17 Blood Pressure 98/67 L 100/68 Pulse Oximetry 100 99 Oxygen Delivery Room Air Room Air Room Air 03/12/25 17:16 Temperature 98.1 F Pulse Rate 92 Respiratory Rate 18 Blood Pressure 107/76 Pulse Oximetry 97 Oxygen Delivery Exam Narrative: GENERAL: non-toxic appearing, in no acute distress. HEAD: Normocephalic, atraumatic. EYES: PERRLA. Conjunctivae clear. NOSE: Normal no drainage. THROAT: Pharynx clear, no exudate. NECK: Trachea midline. No adenopathy, no masses. RESPIRATORY: Airway patent, respirations nonlabored. CTA. CARDIOVASCULAR: Currently rate controlled AFib. S1-S2 heard GASTROINTESTINAL: Abdomen is soft and nontender. No organomegaly. Bowel sounds normal in all quadrants. GENITOURINARY: Defer MUSCULOSKELETAL: Moves all extremities. No gross deformities. SKIN: Warm, dry, normal color. NEURO: A&O X4. Speech clear PSYCHIATRIC: Normal interaction Results Labs Labs: [facility] 03/12/25 13:23 Sodium 135 L Potassium 4.3 Chloride 102 Carbon Dioxide 27 BUN 16 Creatinine 0.80 Glucose 128 H Calcium 8.8 Quality VTE Prophylaxis VTE prophylaxis: pharmacologic ordered Assessment and Plan Assessment and plan (1) Atrial fibrillation with RVR: Code(s): I48.91 - Unspecified atrial fibrillation Status: Acute Assessment and Plan: Patient with history of AFib s/p ablation about 10 years ago. Has not taken anticoagulation or antiarrhythmic agents for about 9 years. Went into AFib RVR after planned colonoscopy today. Given 5 mg IVP metoprolol x3, 10 mg IVP diltiazem and 15 mg IVP diltiazem before his rate decreased to the 80s and 90s from the 120s -cardiology consult -NPO at midnight for possible cardioversion -full-dose Lovenox q.12 hours -start metoprolol succinate 25 mg in the evening on 03/13 -IVP metoprolol tartrate 5 mg q.6 p.r.n. for tachycardia -keep potassium >4 and Mag >2 (2) Controlled type 2 diabetes mellitus without complication, with long-term current use of insulin: Code(s): E11.9 - Type 2 diabetes mellitus without complications; Z79.4 - nursing home (current) use of insulin Status: Chronic Assessment and Plan: Well-controlled diabetes. - hypoglycemia protocol - POC blood glucose ACHS - correct regimen ordered: Low-dose sliding scale (3) Migraine, unspecified, not intractable, without status migrainosus: Qualifiers: Migraine type: migraine (< 15 days per month) with aura Qualified Code(s): G43.109 - Migraine with aura, not intractable, without status migrainosus Code(s): G43.909 - Migraine, unspecified, not intractable, without status migrainosus Status: Chronic Assessment and Plan: History of migraine with patient requiring a dose of his Maxalt today Plan Diet: Consistent carb DVT prophylaxis: Full-dose Lovenox lines/drains: PIV Fluids: During procedure fluids Code status: Full Prior Studies I have reviewed the following patient records and this information was taken into consideration when formulating the assessment and plan.: previous labs, previous ER visits, previous hospitalizations and previous clinic visits Time Spent with Patient Time with patient: 45 - 74 minutes Hospitalist MIPS Advance Care Plan I have confirmed that the patient's Advanced Care Plan is present, code status is documented, or surrogate decision maker is listed in patient medical record.: Yes Medication Reconciliation I have utilized all available resources to obtain, update and review the patients current medications (includes all prescriptions, OTC, herbals, cannabis, and nutritional supplements).: Yes
[2025-03-12 19:12] LABS: Hematocrit 37.2 % (42.0-52.0); Hemoglobin 13.0 g/dL (14.0-18.0); Immature Granulocyte Percent A 0.6 % (0-0.5); Lymphocytes Absolute Auto 1.15 K/mm3 (0.9-3.2); Mean Corpuscular HGB Conc 34.9 g/dl (32-36); Mean Corpuscular Hemoglobin 32.3 pg (26-34); Mean Corpuscular Volume 92.5 fl (80-100); Nucleated Red Blood Cells Absolute Auto 0.000 K/mm3 (0.0-0.012); Nucleated Red Blood Cells Perc 0.0 % (0.0-0.2); Platelet Count Result 243 k/mm3 (150-375); Red Blood Count 4.02 M/mm3 (4.6-6.20); White Blood Count 6.7 K/mm3 (4.5-10.0)
[2025-03-12 20:00] LABS: Thyroid Stimulating Hormone Reflex 1.150 uIU/mL (0.465-4.68)
[2025-03-12] MEDS: ENOXAPARIN 80 MG/0.8 ML SYRINGE SUB-Q (20:55)
[2025-03-13 00:06] VITALS: PULSE 88
[2025-03-13 04:00] VITALS: PULSE 68
[2025-03-13 05:26] VITALS: BP 121/67; PULSE 73; RESP 20; TEMP 36.9; O2SAT 97
[2025-03-13 05:34] LABS: Hematocrit 36.7 % (42.0-52.0); Hemoglobin 12.9 g/dL (14.0-18.0); Immature Granulocyte Percent A 1.0 % (0-0.5); Lymphocytes Absolute Auto 1.22 K/mm3 (0.9-3.2); Mean Corpuscular HGB Conc 35.1 g/dl (32-36); Mean Corpuscular Hemoglobin 32.3 pg (26-34); Mean Corpuscular Volume 92.0 fl (80-100); Nucleated Red Blood Cells Absolute Auto 0.000 K/mm3 (0.0-0.012); Nucleated Red Blood Cells Perc 0.0 % (0.0-0.2); Platelet Count Result 223 k/mm3 (150-375); Red Blood Count 3.99 M/mm3 (4.6-6.20); White Blood Count 5.0 K/mm3 (4.5-10.0)
[2025-03-13 05:47] LABS: Anion Gap 3 mmol/L (4-12); Blood Urea Nitrogen 17 mg/dL (9-20); Calcium 9.0 mg/dL (8.4-10.2); Carbon Dioxide 27 mmol/L (22-30); Chloride 106 mmol/L (98-107); Estimated CRCL calculation 66 ml/min; Estimated Glomerular Filt Rate > 60; Glucose 88 mg/dL (65-110); Magnesium 2.3 mg/dL (1.6-2.3); Potassium 4.2 mmol/L (3.4-5.0); Sodium 136 mmol/L (137-145)
[2025-03-13 08:05] VITALS: PULSE 79
--- NOTE | 2025-03-13 08:15 | P.PNIM_ITS ---
Assessment and Plan Assessment and Plan (1) Atrial fibrillation with RVR: Code(s): I48.91 - Unspecified atrial fibrillation Status: Acute Assessment and Plan: Patient with history of AFib s/p ablation about 10 years ago. Has not taken anticoagulation or antiarrhythmic agents for about 9 years. Went into AFib RVR. Given 5 mg IVP metoprolol x3, 10 mg IVP diltiazem and 15 mg IVP diltiazem before his rate decreased to the 80s and 90s from the 120s -cardiology consulted -NPO at midnight for possible cardioversion -full-dose Lovenox q.12 hours -start metoprolol succinate 25 mg -IVP metoprolol tartrate 5 mg q.6 p.r.n. 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 Hypoglycemia protocol POC blood glucose ACHS Home medications held: Low-dose sliding scale Blood sugars normalized (3) Migraine, unspecified, not intractable, without status migrainosus: Qualifiers: Migraine type: migraine (< 15 days per month) with aura Qualified Code(s): G43.109 - Migraine with aura, not intractable, without status migrainosus Code(s): G43.909 - Migraine, unspecified, not intractable, without status migrainosus Status: Chronic Assessment and Plan: History of migraine with patient requiring a dose of his Maxalt yesterday No visual changes, no vomiting Migraines have subsided Subjective Date/time seen: 03/13/25 08:10 Interval history: 69 year old male with a past history of migraines, Afib with rvr, ablation for AFib (over 10 years ago), diabetes and hyperlipidemia presented outpatient for a scheduled colonoscopy. During the end colonoscopy patient went into Afib RVR. Patient stated he felt like his chest was fluttering. Patient did admit to not tolerating the prep for the colonoscopy well. He stated he had several episodes of vomiting. 03/13- Patient states he is feeling fine. He denies nausea, vomitting, chills, fever, fluttering, chest pains, dizziness, and headaches. Patient states he is just waiitng for cardiology to clear him to go home. Review of Systems Review of Systems: All systems reviewed & are unremarkable except as noted in HPI and below Exam Const: General: comfortable and no acute distress Eyes: General: appearance normal, both eyes and all related structures Pupils: Equal, round and reactive pupils present Neck: Neck: supple and no JVD Thyroid: thyroid normal Resp: Effort & Inspection: normal respiratory effort Auscultation: clear to auscultation bilaterally Cardio: Rate: regular rate Rhythm: regular rhythm GI: GI Palp: Yes Soft to palpation Auscultation: normal bowel sounds Skin: General skin exam: normal color and no rashes or lesions noted Neuro: General: gait normal Speech: normal speech Motor exam (neuro): 5/5 motor strength present throughout and Normal motor muscle tone present throughout Sensory Exam: normal sensation Extrem: General: normal to inspection Psych: Mental Status: mental status grossly normal Affect: normal affect Objective Data Vital Signs Vital Signs: Vital Signs - 24 hr 03/12/25 09:26 03/12/25 11:13 03/12/25 11:24 Temperature 98.1 F Pulse Rate 87 131 H 133 H Respiratory Rate 16 19 15 Blood Pressure 114/69 112/72 126/83 Pulse Oximetry 100 99 100 Oxygen Delivery Room Air Room Air Room Air 03/12/25 11:34 03/12/25 11:34 03/12/25 11:44 Temperature Pulse Rate 133 H 133 H 118 H Respiratory Rate 14 15 Blood Pressure 124/82 111/79 Pulse Oximetry 99 100 Oxygen Delivery Room Air Room Air 03/12/25 11:52 03/12/25 11:54 03/12/25 12:04 Temperature Pulse Rate 120 H 115 H 125 H Respiratory Rate 17 17 Blood Pressure 110/73 111/81 Pulse Oximetry 100 100 Oxygen Delivery Room Air Room Air 03/12/25 12:10 03/12/25 12:24 03/12/25 12:34 Temperature Pulse Rate 131 H 127 H 92 Respiratory Rate 18 18 Blood Pressure 101/74 101/65 Pulse Oximetry 100 99 Oxygen Delivery Room Air Room Air 03/12/25 12:50 03/12/25 13:00 03/12/25 13:20 Temperature Pulse Rate 86 58 L 76 Respiratory Rate 17 21 H 21 H Blood Pressure 104/64 82/55 L 94/59 L Pulse Oximetry 100 99 99 Oxygen Delivery Room Air Room Air Room Air 03/12/25 13:40 03/12/25 13:50 03/12/25 14:10 Temperature Pulse Rate 79 81 94 Respiratory Rate 25 H 23 H 16 Blood Pressure 96/59 L 104/61 102/65 Pulse Oximetry 96 100 99 Oxygen Delivery Room Air Room Air Room Air 03/12/25 14:30 03/12/25 14:50 03/12/25 15:10 Temperature Pulse Rate 98 86 98 Respiratory Rate 26 H 17 13 Blood Pressure 105/57 L 106/59 L 95/66 L Pulse Oximetry 99 98 99 Oxygen Delivery Room Air Room Air Room Air 03/12/25 15:30 03/12/25 15:50 03/12/25 17:13 Temperature Pulse Rate 92 99 Respiratory Rate 20 17 Blood Pressure 98/67 L 100/68 Pulse Oximetry 100 99 Oxygen Delivery Room Air Room Air Room Air 03/12/25 17:16 03/12/25 20:00 03/12/25 20:26 Temperature 98.1 F 98.2 F Pulse Rate 92 67 74 Respiratory Rate 18 16 Blood Pressure 107/76 101/67 Pulse Oximetry 97 99 Oxygen Delivery 03/13/25 00:06 03/13/25 04:00 03/13/25 05:26 Temperature 98.4 F Pulse Rate 88 68 73 Respiratory Rate 20 Blood Pressure 121/67 Pulse Oximetry 97 Oxygen Delivery Intake/Output Intake/Output: Intake & Output 03/10/25 03/11/25 03/12/25 03/13/25 23:59 23:59 23:59 23:59 Intake Total 120 Balance 120 Meds/Results Medications: Active Medications Generic Name Dose Route Start Last Admin Trade Name Freq PRN Reason Stop Dose Admin Dextrose 12.5 gm 03/12/25 17:00 Dextrose 50% 25 Gm/50 Ml Syringe IV PUSH PRN PRN Hypoglycemia Protocol Enoxaparin Sodium 80 mg 03/12/25 21:00 03/12/25 20:55 Enoxaparin 80 Mg/0.8 Ml Syringe SUB-Q 80 mg Q12HR HOPE Administration Glucagon 1 mg 03/12/25 17:00 Glucagon For Inj 1 Mg Vial IM PRN PRN Hypoglycemia Protocol Glucose 15 gm 03/12/25 17:00 Glucose Oral Gel 15 Gm Of Glucse In 37.5 Gm Tube PO PRN PRN Hypoglycemia Protocol Dextrose 1,000 mls @ 100 mls/hr 03/12/25 17:00 Dextrose 5% 1,000 Ml IVPB PRN PRN Hypoglycemia Protocol Insulin Aspart 2 - 5 units 03/12/25 17:00 Insulin Aspart (*Bkc) 100 Units/Ml SUB-Q TIDWM HOPE Protocol Metoprolol Succinate 25 mg 03/13/25 21:00 Metoprolol Succinate Ext Rel 25 Mg Tabcr PO QAM HOPE Metoprolol Tartrate 5 mg 03/12/25 14:26 Metoprolol Tartrate Inj 5 Mg/5 Ml Vial IV PUSH Q6HR PRN tachycardia Rizatriptan Benzoate 10 mg 03/12/25 17:01 03/12/25 17:11 Rizatriptan Benzoate 10 Mg Odt PO 10 mg DAILY PRN Administration Migraine Headache Labs Labs: Laboratory Results - last 24 hr 03/12/25 03/12/25 03/12/25 09:34 13:23 13:39 WBC RBC Hgb Hct MCV MCH MCHC RDW Plt Count MPV Immature Gran % (Auto) Neut % (Auto) Lymph % (Auto) [place] % (Auto) Eos % (Auto) Baso % (Auto) Lymph # (Auto) [place] # (Auto) Eos # (Auto) Baso # (Auto) Abs Immat Gran (auto) Absolute Neuts (auto) Absolute Nucleated RBC Nucleated RBC % Sodium 135 L Potassium 4.3 Chloride 102 Carbon Dioxide 27 Anion Gap 6 BUN 16 Creatinine 0.80 Estim Creat Clear Calc 79 Estimated GFR > 60 Glucose 128 H POC Capillary Glucose 82 125 H Calcium 8.8 Magnesium 2.4 H TSH (Reflex) 03/12/25 03/12/25 03/12/25 16:28 19:01 20:52 WBC 6.7 RBC 4.02 L Hgb 13.0 L Hct 37.2 L MCV 92.5 MCH 32.3 MCHC 34.9 RDW 12.0 Plt Count 243 MPV 9.0 Immature Gran % (Auto) 0.6 H Neut % (Auto) 73.5 H Lymph % (Auto) 17.1 L [place] % (Auto) 6.9 Eos % (Auto) 1.2 Baso % (Auto) 0.7 Lymph # (Auto) 1.15 [place] # (Auto) 0.5 Eos # (Auto) 0.1 Baso # (Auto) 0.1 Abs Immat Gran (auto) 0.04 H Absolute Neuts (auto) 4.9 Absolute Nucleated RBC 0.000 Nucleated RBC % 0.0 Sodium Potassium Chloride Carbon Dioxide Anion Gap BUN Creatinine Estim Creat Clear Calc Estimated GFR Glucose POC Capillary Glucose 97 147 H Calcium Magnesium TSH (Reflex) 1.150 03/13/25 03/13/25 05:18 07:38 WBC 5.0 RBC 3.99 L Hgb 12.9 L Hct 36.7 L MCV 92.0 MCH 32.3 MCHC 35.1 RDW 12.1 Plt Count 223 MPV 8.9 Immature Gran % (Auto) 1.0 H Neut % (Auto) 62.5 Lymph % (Auto) 24.5 [place] % (Auto) 8.6 H Eos % (Auto) 2.4 Baso % (Auto) 1.0 Lymph # (Auto) 1.22 [place] # (Auto) 0.4 Eos # (Auto) 0.1 Baso # (Auto) 0.1 Abs Immat Gran (auto) 0.05 H Absolute Neuts (auto) 3.1 Absolute Nucleated RBC 0.000 Nucleated RBC % 0.0 Sodium 136 L Potassium 4.2 Chloride 106 Carbon Dioxide 27 Anion Gap 3 L BUN 17 Creatinine 0.97 Estim Creat Clear Calc 66 Estimated GFR > 60 Glucose 88 POC Capillary Glucose 98 Calcium 9.0 Magnesium 2.3 TSH (Reflex) Quality VTE Prophylaxis VTE prophylaxis: pharmacologic ordered
[2025-03-13 09:00] VITALS: BMI 25.9
--- NOTE | 2025-03-13 11:16 | PM.DS ---
DS: Admitting Diagnosis Discharge Date 03/13/2025 Admitting Diagnosis Afib with RVR DS: Discharge Diagnosis Discharge Diagnosis (1) Atrial fibrillation with RVR: Code(s): I48.91 - Unspecified atrial fibrillation Status: Acute Plan Patient with into AFib after his scheduled colonoscopy. Given 5 mg IVP metoprolol x3, 10 mg IVP diltiazem and 15 mg IVP diltiazem before his rate decreased to the 80s and 90s from the 120s -cardiology consulted -NPO at midnight for possible cardioversion - Patient remained in sinus rhythm and is hemodynamically stable Per cardiology patient will follow up outpatient DS: Summary Hospital Course Reason for hospitalization: AFib RvR Hospital Course: Patient with history of AFib s/p ablation about 10 years ago. Has not taken anticoagulation or antiarrhythmic agents for about 9 years. Went into AFib RVR. Given 5 mg IVP metoprolol x3, 10 mg IVP diltiazem and 15 mg IVP diltiazem before his rate decreased to the 80s and 90s from the 120s -cardiology consulted -full-dose Lovenox q.12 hours -start metoprolol succinate 25 mg daily -IVP metoprolol tartrate 5 mg q.6 p.r.n. for tachycardia Potassium and Mag stable Patient is now hemodynamically stable and tele shows sinus rhythm Cardiology consulted and patient cleared for discharge- will follow up outpatient Status at Discharge Cognitive/behavioral status at discharge: Stable Functional status at discharge: independent ambulation Overall status at discharge: patient is back to baseline Time Spent with Patient Time attestation: Total time spent providing and/or coordinating discharge services: Exam Const: General: comfortable and no acute distress Eyes: Pupils: Equal, round and reactive pupils present Neck: Neck: supple and no JVD Thyroid: thyroid normal Resp: Effort & Inspection: normal respiratory effort Auscultation: clear to auscultation bilaterally Cardio: Rate: regular rate Rhythm: regular rhythm GI: GI Palp: Yes Soft to palpation Auscultation: normal bowel sounds Skin: General skin exam: normal color Neuro: General: gait normal and deep tendon reflexes 2+ bilaterally Motor exam (neuro): 5/5 motor strength present throughout Extrem: General: normal to inspection Psych: Mental Status: mental status grossly normal Affect: normal affect DS: Data Data Completed and Pending Labs on day of discharge: Labs from last 24 hours 03/13/25 03/13/25 03/12/25 07:38 05:18 20:52 WBC 5.0 RBC 3.99 L Hgb 12.9 L Hct 36.7 L MCV 92.0 MCH 32.3 MCHC 35.1 RDW 12.1 Plt Count 223 MPV 8.9 Immature Gran % (Auto) 1.0 H Neut % (Auto) 62.5 Lymph % (Auto) 24.5 [place] % (Auto) 8.6 H Eos % (Auto) 2.4 Baso % (Auto) 1.0 Lymph # (Auto) 1.22 [place] # (Auto) 0.4 Eos # (Auto) 0.1 Baso # (Auto) 0.1 Abs Immat Gran (auto) 0.05 H Absolute Neuts (auto) 3.1 Absolute Nucleated RBC 0.000 Nucleated RBC % 0.0 Sodium 136 L Potassium 4.2 Chloride 106 Carbon Dioxide 27 Anion Gap 3 L BUN 17 Creatinine 0.97 Estim Creat Clear Calc 66 Estimated GFR > 60 Glucose 88 POC Capillary Glucose 98 147 H Calcium 9.0 Magnesium 2.3 TSH (Reflex) 03/12/25 03/12/25 03/12/25 19:01 16:28 13:39 WBC 6.7 RBC 4.02 L Hgb 13.0 L Hct 37.2 L MCV 92.5 MCH 32.3 MCHC 34.9 RDW 12.0 Plt Count 243 MPV 9.0 Immature Gran % (Auto) 0.6 H Neut % (Auto) 73.5 H Lymph % (Auto) 17.1 L [place] % (Auto) 6.9 Eos % (Auto) 1.2 Baso % (Auto) 0.7 Lymph # (Auto) 1.15 [place] # (Auto) 0.5 Eos # (Auto) 0.1 Baso # (Auto) 0.1 Abs Immat Gran (auto) 0.04 H Absolute Neuts (auto) 4.9 Absolute Nucleated RBC 0.000 Nucleated RBC % 0.0 Sodium Potassium Chloride Carbon Dioxide Anion Gap BUN Creatinine Estim Creat Clear Calc Estimated GFR Glucose POC Capillary Glucose 97 125 H Calcium Magnesium TSH (Reflex) 1.150 03/12/25 13:23 WBC RBC Hgb Hct MCV MCH MCHC RDW Plt Count MPV Immature Gran % (Auto) Neut % (Auto) Lymph % (Auto) [place] % (Auto) Eos % (Auto) Baso % (Auto) Lymph # (Auto) [place] # (Auto) Eos # (Auto) Baso # (Auto) Abs Immat Gran (auto) Absolute Neuts (auto) Absolute Nucleated RBC Nucleated RBC % Sodium 135 L Potassium 4.3 Chloride 102 Carbon Dioxide 27 Anion Gap 6 BUN 16 Creatinine 0.80 Estim Creat Clear Calc 79 Estimated GFR > 60 Glucose 128 H POC Capillary Glucose Calcium 8.8 Magnesium 2.4 H TSH (Reflex) Discharge Plan Discharge Attending physician on discharge: Jo Ann Dickey Consulting providers: Nahid Lackey; Karthik Cerna Discharging Clinician: Gregory Ward Patient Disposition: Home Activity: as tolerated Diet: diabetic Discharge Instructions: What happen during your stay You were treated for atrial fibrillation with rapid ventricular response. AFib is an irregular heart rythmn where the upper chambers of your heart beat too fast and irregularly. Your Medications Taking your medications is very important. Please make sure you follow the directions exactly as prescribed. Some of your medications, might have changed. NEW-Patient will start Metoprolol 25 mg for the next 60 days and will follow up outpatient with Cardiology as soon as possible. Cardiology consulted and anticoagulates not recommended. Patient can continue home medications as prescribed previously. All side effects of your medications were discussed before discharge. Patient should call 911 if you experience any of the following: - Chest pains or pressure - Trouble breathing - Fever over 100.4 or greater - Heavy bleeding or bleeding that will not stop Patient Instructions: Metoprolol (By mouth), A-fib (Atrial Fibrillation) (DC), Diabetes and Exercise (DC) Patient Language: [place] Stand Alone Forms: General Discharge Instructions Follow-up/Referrals: Karthik Cerna MD [Physician, Interventional Cardiology] - 4 Weeks Jerry Harvey MD [Primary Care Provider, Family Practice] - 2 Weeks Discharge Medications: New metoprolol succinate [Toprol XL] 25 mg Tablet Extended Release 24 Hr 25 mg PO QAM 60 Days Qty: 60 2RF Continued Mounjaro 12.5 mg/0.5 mL pen injector 12.5 mg subcut WEEKLY rizatriptan 10 mg tablet 10 mg PO ONCE PRN (Reason: migraine headache) Qty: 30 2RF terbinafine HCl 250 mg tablet 250 mg PO DAILY Qty: 30 3RF (DME) blood sugar diagnostic Strip See Rx Instructions .ROUTE .MEDSUPPLY Qty: 50 0RF Rx Instructions: use to check glucose daily Other Ambulatory Orders: [place] cardiac event monitor (Routine) Timeframe: 1 Month Location: [facility] [place] Cardiology Ordered By: Sirisha Robles Date of admission: 03/12/25 16:46 Primary Care Provider: Jerry Harvey Admitting Provider: Nelson Terry Attending physician on admission: Nelson Terry Condition: Stable Quality VTE Prophylaxis VTE prophylaxis: pharmacologic ordered
[2025-03-13 12:06] VITALS: PULSE 78
== END 2025-03-13 13:06 | disposition home or self-care (01) ==
LOC: ANH3MED 16:50
PROVIDERS: Internal Medicine Gastroenterology; Nurse Practitioner Adult Health; Nurse Practitioner Family; Admitting Provider Family Medicine; PCP Family Medicine; Referring Provider Family Medicine; Visit Provider Internal Medicine
PROC: 0DJD8ZZ Inspection of Lower Intestinal Tract, Via Natural or Artificial Opening Endoscopic (ICD-10-PCS; CPT 45378; principal; 2025-03-12 10:30)
DX: Z12.11 Encounter for screening for malignant neoplasm of colon (principal); I48.0 Paroxysmal atrial fibrillation; D12.5 Benign neoplasm of sigmoid colon; G43.109 Migraine with aura, not intractable, without status migrainosus; E11.9 Type 2 diabetes mellitus without complications; E78.2 Mixed hyperlipidemia; B27.00 Gammaherpesviral mononucleosis without complication; Z79.85 Long-term (current) use of injectable non-insulin antidiabetic drugs
CPT/HCPCS: 45385; 36415; 80048; 82948; 83735; 84443; 85025; 93005; A9270; G0378; J0616; J1163; J1650; J2704; J3010; J7120